=== PATIENT | male | born 1950 | race Caucasian/White ===

== ENCOUNTER 2016-10-16 15:33 | Observation (INO) | payer MEDICARE ==
[~2016-10-16] VITALS: Ht 177.8 cm; Wt 114.0 kg
[2016-10-16 19:37] LABS: HEMOGLOBIN 16.1 gm/dl (14.0-17.5); RED BLOOD COUNT 5.02 M/UL (4.20-5.50); WHITE BLOOD COUNT 10.1 K/UL (4.5-11.0)
[2016-10-16 20:05] LABS: BUN/CREATININE RATIO 10 (0-10)
[2016-10-18 07:13] LABS: BUN/CREATININE RATIO 11 (0-10)
[2016-10-20] MEDS ORDERED: LISINOPRIL5 MG PO (20:08)
[2016-10-20] MEDS ORDERED: LIPITOR TAB 2020 MG PO (20:08)
[2016-10-20] MEDS ORDERED: ASPIR 8181 MG PO (20:08)
[2016-10-20] MEDS ORDERED: LOPRESSOR 25 MG25 MG PO (20:09)
== END 2016-10-20 20:45 | disposition home or self-care (01) ==
LOC: ER1 15:33 → ZEROF 23:30 → M/S 23:30
PROVIDERS: Family Medicine; Physician Assistant; ADMIT Internal Medicine
DX: R07.9 Chest pain, unspecified (principal); R06.02 Shortness of breath; I10 Essential (primary) hypertension; F17.210 Nicotine dependence, cigarettes, uncomplicated; Z86.73 Personal history of transient ischemic attack (TIA), and cerebral infarction without residual deficits; Z82.49 Family history of ischemic heart disease and other diseases of the circulatory system; Z80.42 Family history of malignant neoplasm of prostate; Z79.82 Long term (current) use of aspirin; Z79.899 Other long term (current) drug therapy; Z91.19 Patient's noncompliance with other medical treatment and regimen; Z98.890 Other specified postprocedural states
CPT/HCPCS: ECHO; 36415; 71020; 78452; 80048; 80053; 80061; 82550; 82553; 83036; 83874; 84443; 84484; 85025; 93005; 93017; 93306; 94664; 96372; 99285; A9502; C1769; C1894; G0378; J0583; J1644; J1650; J2250; J2785; J3010; J7030; Q9963

== ENCOUNTER → 2016-12-25 | Outpatient (CLI) | payer MEDICARE ==
[~2016-12-25] MED LIST: ASPIR 8181 MG PO; LIPITOR TAB 2020 MG PO; LISINOPRIL5 MG PO; LOPRESSOR 25 MG25 MG PO
== END ==
LOC: EXRD 09:39
DX: M54.5 Low back pain (principal); M51.36 Other intervertebral disc degeneration, lumbar region
CPT/HCPCS: 72100